=== PATIENT | female | born 1995 | race Caucasian/White ===

== ENCOUNTER → 2018-05-03 17:01 | Outpatient (CLI) | payer OTHER, SELFPAY ==
[2018-05-06 17:11] LABS: Neisseria gonorrhoeae, NAA Negative (Negative)
== END ==
LOC: LAB 05-04 12:02 → LAB.DROPOF 05-05 12:20
PROVIDERS: Visit Provider Nurse Practitioner Obstetrics & Gynecology
DX: R10.2 Pelvic and perineal pain (principal)
CPT/HCPCS: 87491; 87591

== ENCOUNTER 2020-12-16 17:14 | Emergency (ER) | payer OTHER, SELFPAY ==
[2020-12-16 19:05] VITALS: BP 112/87; PULSE 74; RESP 20; TEMP 37.1; O2SAT 100; BMI 35.7
--- NOTE | 2020-12-16 19:22 | HMH.EDUTC ---
[facility] [place] [facility] [place] Clinical Impression: Viral syndrome Disposition: Home, Self-Care Condition on Discharge: Good Instructions: Sore Throat, DI for Viral Syndrome, DI for COVID-19 (Suspected or Confirmed ), Preventing the Spread of Coronavirus Discharge Instructions Additional Instructions: *Monitor Temp, Over the counter Motrin or Tylenol as directed/as needed Tylenol every 4 hours and Motrin every 6 hours (as long as your family doctor has told you that you can take it) for fever or pa-in. and straight to ER if unable to lower temp less than 101.0 after medication given *Warm salt water gargles may help to soothe the throat *Throat Lozenges *Warm fluids like tea with honey may help to soothe the throat *Sleep elevated *Humidifier/Vaporizer *Flonase 2 sprays in each nostril daily but be aware that it may take 2-3 days before you notice improvement Your throat swab was sent for culture. Those results are typically sent to your primary care. Be sure to follow up in 2-3 days with your family doctor/primary care physician if no improvement so they can review those result and treat if necessary. If you don?t have a primary care doctor, I recommend you get one but in the mean time, you will have to return to a walk in clinic Follow up IMMEDIATELY for new or worsening symptoms or no Noticeable improvement over the next 48-72 hours. 911 for difficulty breathing or swallowing You were tested for today for COVID19 your test result should be back in the next 24-48 hours, [facility] to see if your test results are back in the next 48 it may say detected that means your result is positive.You was given handout instructions on how log on and see your results. If you do not have internet access you may call the [facility] for your results [phone] You was given a handout with instructions for Self Quarantine and Self isolation for while you wait on test results and what to do if they are positive If you are positive the Health Dept will be contacting you also Make sure to take your Vitamins Vit. C Vit D and Zinc if you can take them Prescriptions: Fluticasone Propionate [Flonase 50mcg nasal spray 16gm] 1 spr NS DAILY #1 ml Transmission Status: Received by [facility]/pharmacy #[id number] Referrals: Provider,Referral, [Primary Care Provider] - Forms: Work/School Release Medical Decision Making - James Inquiry Pt receiving controlled substance: No James was queried for this patient: No Vital Signs: 12/16/20 19:05 Temperature 98.7 F Temperature Source Oral Pulse Rate [Right Brachial] 74 Respiratory Rate 20 Blood Pressure [Right Arm] 112/87 Blood Pressure Mean [Right Arm] 95 Blood Pressure Source [Right Arm] Automatic Cuff Blood Pressure Position [Right Arm] Sitting 02 Sat by Pulse Oximetry 100 Oxygen Delivery Method Room Air - Lab Data Lab results reviewed: Yes: I reviewed the patient's lab results. Orders (Tests/Meds): ORDERS Category Date Time Status Covid-19 Nasal PCR ([facility]) Routine Lab 12/16/20 19:25 Ordered Covid-19 Nasal PCR ([facility]) Routine Lab 12/16/20 19:28 Received [facility] [place] [facility] [place] HPI - General Stated complaint: congestion ears stopped up Time Seen by Provider: 12/16/20 19:22 Mode of Arrival: Ambulatory Source of Information: Patient Limitations: No Limitations Description of Symptoms (Recalled from Triage Doc. by RN): PATIENT C/O SORE THROAT, BILATERAL EAR PAIN WITH DECREASED HEARING, CONGESTION, RUNNY NOSE AND BACK ACHE SINCE WEDNESDAY HEENT Symptoms (Recalled from RN notes): Yes Resp Symptoms (Recalled from RN notes): No Skin Symptoms (Recalled from RN notes): No MS Symptoms (Recalled from RN notes): Yes Functional Status (Recalled from RN notes): WNL - History of Present Illness Provider Complaint: Patient states that she has been having nasal congestion feels like her left ear is stopped up and unable to hear out of it State that her PCP use to flush it out for her but she dont have one right now, feeling
[2020-12-16 19:56] VITALS: BP 112/87; PULSE 74; RESP 20; TEMP 37.1; O2SAT 100
[2020-12-16 22:04] LABS: UTC Strep Screen (Rapid) Negative (Negative)
== END 2020-12-16 19:58 | disposition home or self-care (01) ==
PROVIDERS: Emergency Provider Nurse Practitioner
DX: B34.9 Viral infection, unspecified (principal); Z20.822 Contact with and (suspected) exposure to COVID-19; F33.1 Major depressive disorder, recurrent, moderate; H61.22 Impacted cerumen, left ear; F17.210 Nicotine dependence, cigarettes, uncomplicated
CPT/HCPCS: 87880; 99203; G0463; U0003

== ENCOUNTER 2021-09-13 19:42 | Emergency (ER) | payer OTHER, SELFPAY ==
[2021-09-13 20:40] VITALS: BP 135/78; PULSE 78; RESP 18; TEMP 37.4; O2SAT 100; BMI 35.7
--- NOTE | 2021-09-13 21:06 | HMH.EDUTC ---
[facility] [place] Disposition Clinical Impression: Post-nasal drip Disposition: Home, Self-Care Condition on Discharge: Good Instructions: DI for Allergic Rhinitis Prescriptions: predniSONE [Prednisone 20mg Tab] 20 mg PO BID 5 Days #10 tab Transmission Status: Received by [facility]pharmacy #[id number] Pseudoephedrine HCl [Sudafed 12 Hour 120mg Tab] 120 mg PO Q12 PRN 10 Days #20 tab PRN Reason: congestion/drainage Transmission Status: Received by [facility] #[id number] Referrals: Provider,Referral, [Primary Care Provider] - Forms: Work/School Release Time of Disposition: 21:17 Medical Decision Making - James Inquiry Pt receiving controlled substance: No Vital Signs: 09/13/21 20:40 Temperature 99.3 F Temperature Source Oral Pulse Rate [Right Brachial] 78 Respiratory Rate 18 Blood Pressure [Right Arm] 135/78 Blood Pressure Mean [Right Arm] 97 Blood Pressure Source [Right Arm] Automatic Cuff Blood Pressure Position [Right Arm] Sitting 02 Sat by Pulse Oximetry 100 Oxygen Delivery Method Room Air [facility] [place] HPI - General Stated complaint: cough,runny nose, sore throat Time Seen by Provider: 09/13/21 21:06 Mode of Arrival: Ambulatory Source of Information: Patient Limitations: No Limitations Description of Symptoms (Recalled from Triage Doc. by RN): PATIENT C/O RUNNY NOSE, CONGESTION, AND COUGH X 3 DAYS HEENT Symptoms (Recalled from RN notes): Yes Resp Symptoms (Recalled from RN notes): Yes Skin Symptoms (Recalled from RN notes): No MS Symptoms (Recalled from RN notes): No Functional Status (Recalled from RN notes): WNL - History of Present Illness Provider Complaint: Runny nose, cough, congestion X 3 days. No fever. Denies ear pain. Sore throat from coughing. Cough is non productive. Taking loratadine. Doesn't seem to be helping as much as it usually does. Onset (ago): day(s) (3) Relieving factors: none Exacerbating factors: none Associated symptoms: cough Treatments prior to arrival: other (loratadine) - Related Data Home Medications Medication Instructions Recorded Confirmed dextroamphetamine-amphetamine 5 mg 5 mg PO tab 06/11/21 06/11/21 tablet sertraline 100 mg tablet 100 mg PO tab 06/11/21 06/11/21 Previous Rx's Medication Instructions Recorded Pseudoephedrine HCl [Sudafed 12 120 mg PO Q12 PRN 10 Days #20 tab 09/13/21 Hour 120mg Tab] predniSONE [Prednisone 20mg 20 mg PO BID 5 Days #10 tab 09/13/21 Tab] Allergies Allergy/AdvReac Type Severity Reaction Status Date / Time No Known Allergies Allergy Verified 06/11/21 09:56 - Worker's Comp Is this a Worker's Comp case?: No [facility] History - Hepatitis A Screen Attestation statement:: This patient has been screened for Hepatitis A risk factors. I have reviewed the patient's past medical history: Yes Medical History: Reports:: Depression Denies:: Cancer, Diabetes Mellitus Type 1, Diabetes Mellitus Type 2, Hypertension, MRSA Comment: ADD Laterality Cases: Bilateral: Tonsillectomy Other Surgeries: Yes: No Previous Surgery Amputation: No Fractures: No Comment: [place] Teeth - Social History Smoking Status: Former smoker Tobacco Type: cigarettes # Packs/Day (cigarettes): 1 Alcohol Intake: never Alcohol Intake Frequency:: other Substance Use Type: marijuana Occupational Status: employed - Psychiatric History Pschychiatric History:: Reports:: Depression Family Hx:: Diabetes ROS Obtained: Yes All systems reviewed & no additional complaints - Constitutional Constitutional: Denies fever(s) - ENT Ears, Nose, Mouth, and Throat: Reports nasal congestion, Reports nasal discharge, Reports sore throat - Respiratory Respiratory: Reports cough Physical Exam - General General appearance: alert, in no apparent distress - Head Head exam: atraumatic, normocephalic - Eye Eye exam: Present: PERRL - ENT ENT exam: Present: TM's normal bilaterally - Expanded ENT Exam Throat exam: Present: other (thick PND)
[2021-09-13 21:18] VITALS: BP 135/78; PULSE 78; RESP 18; TEMP 37.4; O2SAT 100
== END 2021-09-13 21:28 | disposition home or self-care (01) ==
PROVIDERS: Emergency Provider Physician Assistant
DX: J02.9 Acute pharyngitis, unspecified (principal); R09.82 Postnasal drip; F33.1 Major depressive disorder, recurrent, moderate; Z72.0 Tobacco use
CPT/HCPCS: 96372; 99212; G0463; J1040

== ENCOUNTER 2023-05-21 08:04 | Emergency (ER) | payer OTHER, SELFPAY ==
[2023-05-21 08:05] VITALS: BP 128/87; PULSE 90; RESP 15; TEMP 37; O2SAT 100; BMI 25.0
--- NOTE | 2023-05-21 08:12 | XR_ITS ---
FINAL REPORT CLINICAL HISTORY: neck pain s/p chiro adjustment, L shoulder pain FINDINGS: LEFT SHOULDER 3 views of the left shoulder were obtained. There is no acute fracture or dislocation. Visualized joint spaces are normally aligned. Soft tissues are unremarkable. IMPRESSION: No acute bony abnormality. Reviewed, Interpreted and Dictated by Hugo Velarde MD Transcribed by Jazlyn Ledezma Authenticated and [facility]
--- NOTE | 2023-05-21 08:12 | CT_ITS ---
FINAL REPORT TECHNIQUE: Thin section axial CT with sagittal and coronal reconstructions. This study was performed with techniques to keep radiation doses as low as reasonably achievable (ALARA). Individualized dose reduction techniques using automated exposure control or adjustment of mA and/or kV according to the patient's size were employed. CLINICAL HISTORY: neck pain s/p chiro adjustment, L shoulder pain FINDINGS: CT THORACIC SPINE No fracture is present. Alignment is normal. No bony canal stenosis is seen. No significant disc abnormalities. IMPRESSION: Negative CT evaluation of the thoracic spine for acute bony injury. Reviewed, Interpreted and Dictated by Hugo Velarde MD Transcribed by Rain Cyr Authenticated and [facility]
--- NOTE | 2023-05-21 08:12 | CT_ITS ---
FINAL REPORT TECHNIQUE: Thin section axial CT with sagittal reconstruction without contrast. This study was performed with techniques to keep radiation doses as low as reasonably achievable (ALARA). Individualized dose reduction techniques using automated exposure control or adjustment of mA and/or kV according to the patient's size were employed. CLINICAL HISTORY: neck pain s/p chiro adjustment, L shoulder pain FINDINGS: No fracture is seen. Alignment is normal. No obvious bony spinal canal stenosis is present. No gross disk abnormalities are seen. IMPRESSION: No fracture or malalignment. Reviewed, Interpreted and Dictated by Hugo Velarde MD Transcribed by Rain Cyr Authenticated and [facility]
--- NOTE | 2023-05-21 08:16 | HMH.EDGENADL ---
Discharge Plan Disposition Patient Disposition: Home, Self-Care Condition: Good Prescriptions Prescriptions: New lidocaine [Lidoderm] 5 % adhesive patch,medicated 1 patch topical DAILY Qty: 15 0RF Rx Instructions: leave on most painful area for up to 12 hrs naproxen 500 mg tablet 500 mg PO BID PRN (Reason: pain) Qty: 20 0RF methocarbamol 750 mg tablet 750 mg PO Q8H PRN (Reason: pain) Qty: 20 0RF No Action dextroamphetamine-amphetamine [Adderall XR] 20 mg capsule,extended release 24hr 20 mg PO DAILY escitalopram oxalate 5 mg tablet 5 mg PO DAILY Referrals Follow up/Referrals: Provider,Referral, [Primary Care Provider] - See instructions Activity Restrictions/Add. Instructions Additional Instructions/Restrictions: You were evaluated in the emergency department today. Please picker and sorter load and unload your prescriptions and take them as needed for pain. You may also take Tylenol. Follow-up with your primary care provider over the next week. Return to the emergency department for new or worsening symptoms. Clinical Impressions Clinical Impression: Neck and shoulder pain Stand Alone Forms Stand Alone Forms: Work/School Release Instructions Patient Instructions: DI for Acute Pain -- Adult, DI for Neck Pain Discharge ED Provider: Kirstin Ellison General Adult HPI General Chief complaint: PAIN Stated complaint: left neck and shoulder pain Time Seen by Provider: 05/21/23 08:10 Mode of Arrival: Ambulatory Source of Information: Patient Limitations: No Limitations Description of Symptoms (Recalled from ER Triage Doc. by RN): pt presents to ED with c/o left shoulder pain. pt reports she went to the chiropractor yesterday for adjustment. this am pt woke up with increased pain. pt reports pain at baseline, and has been seeing a chiropractor for many years. History of Present Illness HPI narrative: This patient is a 28-year-old female who denies significant past medical history presenting to the emergency department for evaluation with concern for neck and left shoulder pain. Patient reports that she chronically has neck and left shoulder pain, for which she sees a chiropractor. She has seen a chiropractor for a long time but is at a new chiropractor the last few visits. She notes that she was adjusted yesterday and since has had severe neck pain as well as left shoulder pain. She states that it feels like a throbbing pain. No numbness, tingling, vision changes, muscle weakness, or balance issues, gait disturbance, or other concerns. She has otherwise been well. She denies any concern she could be . Related Data Home Medications Medication Instructions Recorded Confirmed dextroamphetamine-amphetamine ER 20 mg PO DAILY 04/28/23 05/21/23 20 mg 24hr capsule,extend release (Adderall XR) escitalopram oxalate 5 mg tablet 5 mg PO DAILY 04/28/23 05/21/23 Previous Rx's Medication Instructions Recorded lidocaine 5 % topical patch 1 patch topical DAILY #15 ea 05/21/23 (Lidoderm) methocarbamol 750 mg tablet 750 mg PO Q8H PRN pain #20 tabs 05/21/23 naproxen 500 mg tablet 500 mg PO BID PRN pain #20 tabs 05/21/23 Allergies Allergy/AdvReac Type Severity Reaction Status Date / Time No Known Allergies Allergy Verified 04/28/23 14:03 [facility] Disclaimer: The information contained in this section may have been updated after the patient was seen, as this information can be updated by other users. Medical History ADHD Anxiety and depression Surgical History Hx of tonsillectomy Family History Other Diabetes Social History Smoking Status: Current every day smoker tobacco type: cigarettes packs per day: 1 alcohol intake: never substance use type: marijuana current occupational status: employed Travel in the last 8 weeks: None ROS Obtained: Yes All systems reviewed & no additional complaints except as documented Physical Exam General General appearance: alert and in no apparent distress Head Head exam: atraumatic and normocephalic Eye Eye exam: Present normal appearance, PERRL and EOMI ENT ENT exam: Present normal exam, normal oropharynx, mucous membranes moist and normal external ear exam Neck Neck exam: Present trachea midline and tenderness (Left neck); Absent full ROM (Limited range of motion secondary to pain), meningismus or lymphadenopathy Chest Chest inspection: Present normal inspection and symmetric chest wall rise; Absent tenderness Respiratory Respiratory exam: Present normal lung sounds bilaterally; Absent respiratory distress, wheezes, stridor or accessory muscle use Cardiovascular Cardiovascular exam: Present regular rate and normal rhythm Abdominal Exam Abdominal exam: Present soft; Absent distention, tenderness or guarding Extremities Exam Extremities exam: Present full ROM, tenderness (Tenderness palpation of the left posterior shoulder about the scapula. Neurovascularly intact distally.) and normal capillary refill; Absent edema Back Exam Back exam: Present full ROM and tenderness (Left neck paraspinal muscles and left upper thoracic paraspinal muscles) Neurological Exam Neurological exam: Present alert, oriented X3, CN II-XII intact and normal gait; Absent motor sensory deficit Psychiatric Psychiatric exam: Present normal affect and normal mood Skin Skin exam: Present warm and dry Medical Decision Making Medical Records Medical records reviewed: Yes I reviewed the patient's medical records. James Inquiry Pt receiving controlled substance: No Vital Signs: 05/21/23 08:05 05/21/23 09:00 05/21/23 09:30 Temperature 98.6 F Temperature Source Oral Pulse Rate 75 75 Pulse Rate [Left Radial] 90 Respiratory Rate 15 Blood Pressure 108/56 L 122/70 Blood Pressure [Right Arm] 128/87 Blood Pressure Mean 73 85 Blood Pressure Mean [Right Arm] 100 02 Sat by Pulse Oximetry 100 98 98 Oxygen Delivery Method Room Air Room Air Room Air 05/21/23 10:15 Temperature 98.0 F Temperature Source Pulse Rate 96 H Pulse Rate [Left Radial] Respiratory Rate 19 Blood Pressure 113/68 Blood Pressure [Right Arm] Blood Pressure Mean Blood Pressure Mean [Right Arm] 02 Sat by Pulse Oximetry Oxygen Delivery Method Room Air Lab Data Lab results reviewed: Yes I reviewed the patient's lab results. Lab Results 05/21/23 08:20: Urine HCG, Qual Negative Orders (Tests/Meds): ED MEDICATIONS Discontinued Medications Generic Name Dose Route Start Last Admin Trade Name Freq PRN Reason Stop Dose Admin Acetaminophen 1,000 mg 05/21/23 08:12 05/21/23 08:28 Acetaminophen 500mg Tab PO 05/21/23 08:13 1,000 mg ONCE ONE Administration Diazepam 5 mg 05/21/23 08:12 05/21/23 08:29 Diazepam 5mg Tablet PO 05/21/23 08:13 5 mg ONCE ONE Administration Ketorolac Tromethamine 30 mg 05/21/23 08:12 05/21/23 08:29 Ketorolac 30mg/Ml Vial IM 05/21/23 08:13 30 mg ONCE ONE Administration Lidocaine 1 each 05/21/23 08:12 05/21/23 08:29 Lidocaine 5% Transdermal Patch TP 05/21/23 08:13 1 each ONCE ONE Administration ORDERS Category Date Time Status CT cervical spine wo con Stat Cat Scan 05/21/23 08:[address] thoracic spine wo con Stat Cat Scan 05/21/23 08:12 Taken XR shoulder LT min 2V Stat Exams 05/21/23 08:12 Taken Urine , HCG Qual. Stat Lab 05/21/23 08:20 Completed Medical Decision Narrative: In summary, this patient is a 28-year-old female presenting to the Emergency Department for evaluation of neck and left shoulder pain after chiropractic adjustment. Differential diagnoses considered include but are not limited to fracture, musculoskeletal strain/sprain, neurovascular injury. Ruling out the most morbid conditions drove assessment. On exam, the patient is well-appearing with no neurologic symptoms or focal neurologic deficits. She does have paraspinal muscle tenderness, so I feel this is likely musculoskeletal in nature. Workup included CT C-spine, CT T-spine, and x-rays of the left shoulder. She was given oral Valium, IM Toradol, oral Tylenol, a topical Lidoderm patch presented medic improvement. I considered obtaining CT angiograms to evaluate for potential vascular injury, however the patient is completely neurologically intact so I do not feel that this is indicated. I independently interpreted CT and x-ray prior to the radiologist read and noted no acute fracture or other traumatic injury. Please see their read for final interpretation. On reassessment, the patient is neurologically intact and resting comfortably with improved symptoms. Given this, feel that she is appropriate for discharge with instructions for musculoskeletal strain/sprain of the neck and left shoulder. She was given instructions for close follow-up with her primary care provider, instructed her to follow-up with orthopedics for her left shoulder pain continue, and I gave her strict return precautions. She was discharged with prescriptions for Lidoderm patch, Robaxin, and naproxen. Critical Care Critical Care Time Critical Care Time: No
[2023-05-21] MEDS: ACETAMINOPHEN 500MG TAB 1000 MG PO (08:28)
[2023-05-21] MEDS: KETOROLAC 30MG/ML VIAL 30 MG IM (08:29)
[2023-05-21] MEDS: LIDOCAINE 5% TRANSDERMAL PATCH 1 EACH TP (08:29)
[2023-05-21] MEDS: diazePAM 5MG TABLET 5 MG PO (08:29)
[2023-05-21 08:47] LABS: Urine Pregnancy, HCG Qual. Negative (Negative)
[2023-05-21 09:00] VITALS: BP 108/56; PULSE 75; O2SAT 98
--- NOTE | 2023-05-21 09:02 | PC.NURSE ---
RADIOLOGY NOTIFIED OF NEGATIVE TEST, PT IS READY FOR CT AND XR
--- NOTE | 2023-05-21 09:06 | PC.NURSE ---
Pt gone to RAD via wheelchair
--- NOTE | 2023-05-21 09:07 | PC.NURSE ---
PT TO CT AND XR
--- NOTE | 2023-05-21 09:19 | PC.NURSE ---
Pt returned from RAD
[2023-05-21 09:30] VITALS: BP 122/70; PULSE 75; O2SAT 98
[2023-05-21 10:15] VITALS: BP 113/68; PULSE 96; RESP 19; TEMP 36.7; O2SAT 98
== END 2023-05-21 10:20 | disposition home or self-care (01) ==
PROVIDERS: Emergency Provider Emergency Medicine
DX: M54.2 Cervicalgia (principal); M25.512 Pain in left shoulder; F17.210 Nicotine dependence, cigarettes, uncomplicated
CPT/HCPCS: 72125; 72128; 73030; 81025; 96372; 99285

== ENCOUNTER 2023-06-01 14:32 | Outpatient (CLI) | payer OTHER, SELFPAY ==
--- NOTE | 2023-06-01 14:37 | US_ITS ---
PROCEDURE: US TRANSVAGINAL CLINICAL INDICATION: iud in place COMPARISON: No exams were available for comparison FINDINGS: Transvaginal sonographic images of the pelvis were obtained. UTERUS: 6.8 cm x 4.8 cmx 4.0cm retroverted, retroflexed with a combined endometrial thickness of 7.5mm. There is an IUD in the correct position within the uterine cavity. LEFT OVARY: 4.2cmx2.6 cm. There is a dominant follicle measuring 2.0 cm x 1.2 cm x 1.3 cm. RIGHT OVARY: 4.1cmx 3.0cmx2.4cm with a volume of 15.8ml. Follicle measures 1.8 cm x 2.0 cm x 1.6 cm. Follicle 2 measures 2.1 cm x 2.3 cm x 1.6 cm. Both ovaries are seen and appear normal. Doppler flow to both ovaries are seen. There is minimal fluid in the cul-de-sac. It measures 4.7 cm x 2.1 cm. IMPRESSION: 1. Retroverted, retroflexed uterus normal in shape and size. The endometrium is normal thickness. 2. An IUD is present within the uterine cavity in the correct position. 3. Both left and right ovaries are seen and appear normal. There are follicles on both ovaries. 4. There is minimal fluid in the cul-de-sac. Dictated by: Lenin Ross MD 06/01/2023 16:11 Lenin Ross MD in OV 06/01/2023 16:11
== END 2023-06-01 23:59 ==
LOC: RAD 14:34
PROVIDERS: PCP Nurse Practitioner Obstetrics & Gynecology; Visit Provider Nurse Practitioner Obstetrics & Gynecology
DX: Z97.5 Presence of (intrauterine) contraceptive device (principal)
CPT/HCPCS: 76830

== ENCOUNTER 2023-09-11 14:27 | Emergency (ER) | payer OTHER, SELFPAY ==
[2023-09-11 15:30] VITALS: BP 108/87; PULSE 67; RESP 20; TEMP 36.5; O2SAT 100; BMI 24.4
[2023-09-11 16:05] LABS: UTC Strep Screen (Rapid) Positive (Negative)
--- NOTE | 2023-09-11 16:19 | EXP.UTC ---
Discharge Plan Disposition Patient Disposition: Home, Self-Care Condition: Good Prescriptions Prescriptions: New benzonatate 100 mg capsule 100 mg PO TID PRN (Reason: cough) Qty: 30 0RF cefdinir 300 mg capsule 300 mg PO Q12H 10 Days Qty: 20 0RF No Action dextroamphetamine-amphetamine [Adderall XR] 20 mg capsule,extended release 24hr 20 mg PO DAILY escitalopram oxalate 5 mg tablet 5 mg PO DAILY Kyleena 17.5 mcg/24 hrs (5 yrs) 19.5 mg intrauterine device 1 device intrauterine ONCE lidocaine [Lidoderm] 5 % adhesive patch,medicated 1 patch topical DAILY Qty: 15 0RF Rx Instructions: leave on most painful area for up to 12 hrs dextroamphetamine-amphetamine 5 mg tablet 5 mg PO DAILY Patient Comments: TAKE 1 TABLET BY MOUTH ONCE DAILY Referrals Follow up/Referrals: Tom Nix [Primary Care Provider] - See instructions Activity Restrictions/Add. Instructions Additional Instructions/Restrictions: If symptoms persist or worsen, return to the clinic. Clinical Impressions Clinical Impression: Strep pharyngitis URI (upper respiratory infection) Qualifiers: URI type: unspecified URI Qualified Code(s): J06.9 - Acute upper respiratory infection, unspecified Instructions Patient Instructions: DI for Strep Throat, DI for Viral Upper Respiratory Infection -- Adult Discharge ED Provider: Bambi Medina [facility] General Stated complaint: cough, sore throat, congestion Mode of Arrival: Ambulatory Source of Information: Patient Limitations: No Limitations Time Seen by Provider: 09/11/23 16:18 Description of Symptoms (Recalled from Triage Doc. by RN): Pt's symptoms are cough, sore throat, productive cough, and HASTINGS. HEENT Symptoms (Recalled from RN notes): Yes Resp Symptoms (Recalled from RN notes): No Skin Symptoms (Recalled from RN notes): No MS Symptoms (Recalled from RN notes): No Functional Status (Recalled from RN notes): n/a History of Present Illness Provider Complaint: Pt states that she has had a strong cough, headache, and sore throat since last night. 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 She denies taking anything for her symptoms. Related Data Home Medications Medication Instructions Recorded Confirmed dextroamphetamine-amphetamine ER 20 mg PO DAILY 04/28/23 09/11/23 20 mg 24hr capsule,extend release (Adderall XR) escitalopram oxalate 5 mg tablet 5 mg PO DAILY 04/28/23 09/11/23 levonorgestrel 17.5 mcg/24 hr (up 1 device intrauterine ONCE 05/26/23 09/11/23 to 5 yrs) 19.5mg intrauterine device (Kyleena) dextroamphetamine-amphetamine 5 mg 5 mg PO DAILY 09/11/23 09/11/23 tablet Previous Rx's Medication Instructions Recorded lidocaine 5 % topical patch 1 patch topical DAILY #15 ea 05/21/23 (Lidoderm) benzonatate 100 mg capsule 100 mg PO TID PRN cough #30 caps 09/11/23 cefdinir 300 mg capsule 300 mg PO Q12H 10 days #20 caps 09/11/23 Allergies Allergy/AdvReac Type Severity Reaction Status Date / Time No Known Allergies Allergy Verified 09/11/23 16:02 Worker's Comp Is this a Worker's Comp case?: No [facility] Disclaimer: The information contained in this section may have been updated after the patient was seen, as this information can be updated by other users. Medical History ADHD Anxiety and depression Surgical History Hx of tonsillectomy Family History Other Diabetes Social History Smoking Status: Current every day smoker tobacco type: cigarettes packs per day: 1 alcohol intake: never substance use type: marijuana current occupational status: employed Travel in the last 8 weeks: None ROS Obtained: Yes All systems reviewed & no additional complaints except as documented Constitutional Constitutional: Reports system reviewed and no additional complaints, except as documented and Reports malaise Eyes Eyes: Reports system reviewed and no additional complaints, except as documented ENT Ears, Nose, Mouth, and Throat: Reports system reviewed and no additional complaints, except as documented, Reports nasal discharge, Reports odynophagia and Reports sore throat Cardiovascular Cardiovascular: Reports system reviewed and no additional complaints, except as documented Respiratory Respiratory: Reports system reviewed and no additional complaints, except as documented and Reports cough Gastrointestinal Gastrointestingal: Reports system reviewed and no additional complaints, except as documented and odynophagia Genitourinary Female Genitourinary: Reports system reviewed and no additional complaints, except as documented Musculoskeletal Musculoskeletal: Reports system reviewed and no additional complaints, except as documented Integumentary/Breasts Skin/Breast: Reports system reviewed and no additional complaints, except as documented Neurologic Neurologic: Reports system reviewed and no additional complaints, except as documented Endocrine Endocrine: Reports system reviewed and no additional complaints, except as documented Hematologic/Lymphatic Henatologic/Lymphatic: Reports system reviewed and no additional complaints, except as documented Allergic/Immunologic Allergic/Immunologic: Reports system reviewed and no additional complaints, except as documented Physical Exam General General appearance: alert Comment: ill appearing Head Head exam: atraumatic and normocephalic Eye Eye exam: Present normal appearance Expanded ENT Exam External ear exam: Present normal external inspection Nasal speculum exam: Bilateral: normal Mouth exam: Present normal external inspection Teeth exam: Present normal inspection Comment: Tonsil absent. Throat is red with soft palate petechia. Neck Neck exam: Present normal inspection Chest Chest inspection: Present normal inspection and symmetric chest wall rise Respiratory Respiratory exam: Present normal lung sounds bilaterally Cardiovascular Cardiovascular exam: Present regular rate and normal rhythm Abdominal Exam Abdominal exam: Present soft Extremities Exam Extremities exam: Present normal inspection Back Exam Back exam: Present normal inspection Neurological Exam Neurological exam: Present alert and oriented X3 Psychiatric Psychiatric exam: Present normal affect and normal mood Skin Skin exam: Present warm, dry and intact Lymphatic Lymphatic Findings: no adenopathy Medical Decision Making James Inquiry Pt receiving controlled substance: No James was queried for this patient: No Vital Signs: 09/11/23 15:30 Temperature 97.7 F Temperature Source Oral Pulse Rate [Right Radial] 67 Respiratory Rate 20 Blood Pressure [Right Arm] 108/87 L Blood Pressure Mean [Right Arm] 94 Blood Pressure Source [Right Arm] Automatic Cuff Blood Pressure Position [Right Arm] Sitting 02 Sat by Pulse Oximetry 100 Oxygen Delivery Method Room Air Lab Data Lab results reviewed: Yes I reviewed the patient's lab results. Lab Results 09/11/23 15:44: Strep Scn Rapid Clinic Positive A
[2023-09-11 16:53] VITALS: BP 108/87; PULSE 67; RESP 20; TEMP 36.5; O2SAT 100
== END 2023-09-11 16:53 | disposition home or self-care (01) ==
PROVIDERS: Emergency Provider Nurse Practitioner Family; PCP Family Medicine
DX: J02.0 Streptococcal pharyngitis (principal); R07.0 Pain in throat; R51.9 Headache, unspecified; R05.9 Cough, unspecified; J06.9 Acute upper respiratory infection, unspecified
CPT/HCPCS: 87880; 99212; 99214; G0463

== ENCOUNTER 2024-01-27 21:00 | Emergency (ER) | payer OTHER, SELFPAY ==
[2024-01-27 21:02] VITALS: BP 103/66; PULSE 80; RESP 16; TEMP 36.9; O2SAT 100; BMI 23.3
--- NOTE | 2024-01-27 21:05 | HMH.EDGENADL ---
Discharge Plan Disposition Patient Disposition: Home, Self-Care Prescriptions Prescriptions: New methocarbamol 750 mg tablet 750 mg PO Q6H PRN (Reason: muscle spasm) Qty: 20 0RF lidocaine 5 % adhesive patch,medicated 1 patch topical DAILY Qty: 30 0RF Rx Instructions: leave on most painful area for up to 12 hrs ondansetron 4 mg tablet,disintegrating 4 mg PO Q6H PRN (Reason: nausea and vomiting) Qty: 10 0RF No Action dextroamphetamine-amphetamine [Adderall XR] 20 mg capsule,extended release 24hr 20 mg PO DAILY escitalopram oxalate 5 mg tablet 5 mg PO DAILY Kyleena 17.5 mcg/24 hrs (5 yrs) 19.5 mg intrauterine device 1 device intrauterine ONCE lidocaine [Lidoderm] 5 % adhesive patch,medicated 1 patch topical DAILY Qty: 15 0RF Rx Instructions: leave on most painful area for up to 12 hrs dextroamphetamine-amphetamine 5 mg tablet 5 mg PO DAILY Patient Comments: TAKE 1 TABLET BY MOUTH ONCE DAILY benzonatate 100 mg capsule 100 mg PO TID PRN (Reason: cough) Qty: 30 0RF cefdinir 300 mg capsule 300 mg PO Q12H 10 Days Qty: 20 0RF Referrals Follow up/Referrals: Ray Cota II, MD [Staff Physician] - See instructions Tom Nix [Primary Care Provider] - See instructions Activity Restrictions/Add. Instructions Additional Instructions/Restrictions: As we discussed keep follow-up with your PCP. Have referred you to Dr. Cota for second opinion regarding your gallbladder. Return to the ER for any worsening signs or symptoms as needed. Clinical Impressions Clinical Impression: Back pain Qualifiers: Back pain location: low back pain Chronicity: chronic Back pain laterality: midline Sciatica presence: without sciatica Qualified Code(s): M54.50 - Low back pain, unspecified Abdominal pain Qualifiers: Abdominal location: epigastric Qualified Code(s): R10.13 - Epigastric pain Nausea & vomiting Qualifiers: Vomiting type: unspecified Qualified Code(s): R11.2 - Nausea with vomiting, unspecified Stand Alone Forms Stand Alone Forms: Work/School Release Instructions Patient Instructions: DI for Acute Abdominal Pain Print Language Print Language: Thai Discharge ED Provider: Oscar Case Adult HPI <PATSY Taylor - Last Filed: 01/27/24 23:20> General Chief complaint: Abdominal Pain Stated complaint: vomiting,pinching and burning in back and stomach Time Seen by Provider: 01/27/24 21:05 History of Present Illness HPI narrative: Patient presents for evaluation of multiple complaints. Patient has a 1 year history of intermittent back and abdominal pain that she feels are intra related. She has had a workup in the past including upper endoscopy abdominal ultrasound and a HIDA scan without any clear-cut cause. Pain is not constant it comes and goes it is not associated with food. Patient thinks that she has nausea and vomiting when the pain becomes severe. She denies any new changes fever chills hemoptysis hematochezia melena. She denies any trauma dysuria. Related Data Home Medications ?Medication ?Instructions ?Recorded ?Confirmed dextroamphetamine-amphetamine ER 20 mg PO DAILY 04/28/23 09/11/23 20 mg 24hr capsule,extend release (Adderall XR) escitalopram oxalate 5 mg tablet 5 mg PO DAILY 04/28/23 09/11/23 levonorgestrel 17.5 mcg/24 hr (up 1 device intrauterine ONCE 05/26/23 09/11/23 to 5 yrs) 19.5mg intrauterine device (Kyleena) dextroamphetamine-amphetamine 5 mg 5 mg PO DAILY 09/11/23 09/11/23 tablet Previous Rx's ?Medication ?Instructions ?Recorded lidocaine 5 % topical patch 1 patch topical DAILY #15 ea 05/21/23 (Lidoderm) benzonatate 100 mg capsule 100 mg PO TID PRN cough #30 caps 09/11/23 cefdinir 300 mg capsule 300 mg PO Q12H 10 days #20 caps 09/11/23 lidocaine 5 % topical patch 1 patch topical DAILY #30 ea 01/27/24 methocarbamol 750 mg tablet 750 mg PO Q6H PRN muscle spasm #20 01/27/24 tabs ondansetron 4 mg disintegrating 4 mg PO Q6H PRN nausea and 01/27/24 tablet vomiting #10 tabs Allergies Allergy/AdvReac Type Severity Reaction Status Date / Time No Known Allergies Allergy Verified 09/11/23 16:02 [facility] <PATSY Taylor - Last Filed: 01/27/24 23:20> [facility] Disclaimer: The information contained in this section may have been updated after the patient was seen, as this information can be updated by other users. Medical History ADHD Anxiety and depression Surgical History Hx of tonsillectomy Family History Other Diabetes Social History Smoking Status: Never smoker alcohol intake: never substance use type: marijuana current occupational status: employed Travel in the last 8 weeks: None Other Medical History Have you received the Flu Vaccine for this season: No Have you received the Pneumonia Vaccine: No <PATSY Taylor - Last Filed: 01/27/24 23:20> ROS Obtained: Yes Systems reviewed as appropriate & no additional complaints except as documented Physical Exam <PATSY Taylor - Last Filed: 01/27/24 23:20> General General appearance: alert and in no apparent distress Respiratory Respiratory exam: Present normal lung sounds bilaterally Cardiovascular Cardiovascular exam: Present regular rate Neurological Exam Neurological exam: Present alert and oriented X3 Medical Decision Making <PATSY Taylor - Last Filed: 01/27/24 23:20> Medical Records Medical records reviewed: Yes I reviewed the patient's medical records. Screening: Per USPSTF and CDC recommendations, given the prevalence of disease in our region, it is our hospital?s policy to screen for HIV and viral Hepatitis for all patients aged 18 and over and those with ongoing risk factors. James Inquiry Pt receiving controlled substance: No Vital Signs: 01/27/24 21:02 01/27/24 23:21 Temperature 98.4 F 98.9 F Temperature Source Oral Oral Pulse Rate 74 Pulse Rate [Left Radial] 80 Respiratory Rate 16 16 Blood Pressure 98/56 L Blood Pressure [Right Arm] 103/66 L Blood Pressure Mean [Right Arm] 78 Blood Pressure Source [Right Arm] Automatic Cuff Blood Pressure Position [Right Arm] Sitting 02 Sat by Pulse Oximetry 100 Oxygen Delivery Method Room Air Room Air Lab Data Lab results reviewed: Yes I reviewed the patient's lab results. Lab Results 01/27/24 21:26: WBC 7.7, RBC 3.93 L, Hgb 12.6, Hct 37.4, MCV 95.2, MCH 32.1 H, MCHC 33.7, RDW 12.8, Plt Count 233, MPV 10.3, Neut % (Auto) 42.4, Lymph % (Auto) 39.1, [place] % (Auto) 10.6 H, Eos % (Auto) 6.1, Baso % (Auto) 1.9, Neut # (Auto) 3.3, Lymph # (Auto) 3.0, [place] # (Auto) 0.8, Eos # (Auto) 0.5 H, Baso # (Auto) 0.1, Sodium 135 L, Potassium 4.3, Chloride 109 H, Carbon Dioxide 24, Anion Gap 6.3, BUN 17, Creatinine 0.80, Estimated Creat Clear 105, Estimated GFR 85, Est GFR ( Amer) 103, Glucose 86, Calcium 9.1, Magnesium 1.8, Total Bilirubin 0.8, AST 31, ALT 26, Alkaline Phosphatase 45, Total Protein 7.7, Albumin 4.5, Globulin 3.2, Albumin/Globulin Ratio 1.4, Lipase 172, Serum HCG, Qual Negative, HIV 1&2 Antibody Rapid Nonreactive 01/27/24 21:32: Urine Color Yellow, Urine Appearance Clear, Urine pH 6.0, Ur Specific [place] >= 1.030, Urine Protein Negative, Urine Glucose (UA) Negative, Urine Ketones Trace, Urine Blood Trace-i, Urine Nitrate Negative, Urine Bilirubin Negative, Urine Urobilinogen 1.0, Ur Leukocyte Esterase Negative, Urine RBC 3-5, Urine WBC 3-5, Ur Squamous Epith Cells 10-20, Urine Bacteria 1+, Urine Mucus 1+ 01/27/24 22:39: Lactate 0.7 01/27/24 21:26 01/27/24 21:26 Orders (Tests/Meds): ED MEDICATIONS Discontinued Medications Generic Name Dose Route Start Last Admin Trade Name Freq PRN Reason Stop Dose Admin Dexamethasone Sodium Phosphate 10 mg 01/27/24 21:17 01/27/24 21:46 Dexamethasone 4mg/Ml 5ml Mdv IV 01/27/24 21:18 10 mg ONCE ONE Administration Ketorolac Tromethamine 15 mg 01/27/24 21:17 01/27/24 21:46 Ketorolac 30mg/Ml Vial IV 01/27/24 21:18 15 mg ONCE ONE Administration Lidocaine 1 each 01/27/24 21:17 01/27/24 21:46 Lidocaine 5% Transdermal Patch TP 01/27/24 21:18 1 each ONCE ONE Administration Methocarbamol 500 mg 01/27/24 21:17 01/27/24 21:46 Methocarbamol 500mg Tablet PO 01/27/24 21:18 500 mg ONCE ONE Administration Ondansetron HCl 4 mg 01/27/24 21:05 01/27/24 21:46 Ondansetron 4mg/2ml Vial IV 01/27/24 21:06 4 mg ONCE ONE Administration ORDERS Category Date Time Status CBC w/Auto Diff [Complete Blood Count Auto Diff] Stat Lab 01/27/24 21:26 Completed CMP [Comprehensive Metabolic Panel] Stat Lab 01/27/24 21:26 Completed HCG Qualitative, Serum Stat Lab 01/27/24 21:26 Completed HIV (1&2) Antibody Rapid Stat Lab 01/27/24 21:26 Completed Hep C Ab with Reflex to RNA Stat Lab 01/27/24 21:26 Received Lactic Acid Stat Lab 01/27/24 22:39 Completed Lipase Stat Lab 01/27/24 21:26 Completed Magnesium Stat Lab 01/27/24 21:26 Completed UA [Urinalysis and Microscopic] Stat Lab 01/27/24 21:32 Completed Medical Decision Narrative: In summary patient is a 29-year-old female who presents to the emergency department for evaluation of epigastric abdominal and low back pain. Patient is hemodynamically stable upon arrival, afebrile. Physical exam is remarkable for mild epigastric tenderness but not focal to any specific area without rebound or guarding or rigidity. Patient has negative bilateral CVA tenderness to percussion. Patient does however have mild paraspinous muscular tenderness around the lumbar spine without any bony deformity noted. Patient has no radicular or neuropathic pain she is neurovascular intact distally in the bilateral lower extremities without saddle anesthesia or bowel or bladder incontinence. Differential diagnosis includes gastroenteritis versus ulcer disease versus esophagitis versus biliary dyskinesia versus degenerative disc disease pancreatitis etc. Initial workup will be conducted with hematologic labs urinalysis. Initial interventions include acetaminophen Toradol Robaxin Lidoderm patch. Initial workup reviewed by me is reassuring as her hematologic labs are nonactionable lipase is normal transaminases are slowly normal bilirubin is normal urinalysis contaminated. Upon repeat evaluation patient actually had significant reduction in her discomfort with initial intervention. Given this patient is appropriate for discharge with prescriptions for Robaxin and Lidoderm and Zofran, a referral to gastroenterology for second opinion regarding her gallbladder and strict return precautions. <Oscar Case MD - Last Filed: 01/28/24 00:38> Vital Signs: 01/27/24 21:02 01/27/24 23:21 Temperature 98.4 F 98.9 F Temperature Source Oral Oral Pulse Rate 74 Pulse Rate [Left Radial] 80 Respiratory Rate 16 16 Blood Pressure 98/56 L Blood Pressure [Right Arm] 103/66 L Blood Pressure Mean [Right Arm] 78 Blood Pressure Source [Right Arm] Automatic Cuff Blood Pressure Position [Right Arm] Sitting 02 Sat by Pulse Oximetry 100 Oxygen Delivery Method Room Air Room Air Lab Data Lab Results 01/27/24 21:26: WBC 7.7, RBC 3.93 L, Hgb 12.6, Hct 37.4, MCV 95.2, MCH 32.1 H, MCHC 33.7, RDW 12.8, Plt Count 233, MPV 10.3, Neut % (Auto) 42.4, Lymph % (Auto) 39.1, [place] % (Auto) 10.6 H, Eos % (Auto) 6.1, Baso % (Auto) 1.9, Neut # (Auto) 3.3, Lymph # (Auto) 3.0, [place] # (Auto) 0.8, Eos # (Auto) 0.5 H, Baso # (Auto) 0.1, Sodium 135 L, Potassium 4.3, Chloride 109 H, Carbon Dioxide 24, Anion Gap 6.3, BUN 17, Creatinine 0.80, Estimated Creat Clear 105, Estimated GFR 85, Est GFR ( Amer) 103, Glucose 86, Calcium 9.1, Magnesium 1.8, Total Bilirubin 0.8, AST 31, ALT 26, Alkaline Phosphatase 45, Total Protein 7.7, Albumin 4.5, Globulin 3.2, Albumin/Globulin Ratio 1.4, Lipase 172, Serum HCG, Qual Negative, HIV 1&2 Antibody Rapid Nonreactive 01/27/24 21:32: Urine Color Yellow, Urine Appearance Clear, Urine pH 6.0, Ur Specific [place] >= 1.030, Urine Protein Negative, Urine Glucose (UA) Negative, Urine Ketones Trace, Urine Blood Trace-i, Urine Nitrate Negative, Urine Bilirubin Negative, Urine Urobilinogen 1.0, Ur Leukocyte Esterase Negative, Urine RBC 3-5, Urine WBC 3-5, Ur Squamous Epith Cells 10-20, Urine Bacteria 1+, Urine Mucus 1+ 01/27/24 22:39: Lactate 0.7 Orders (Tests/Meds): ED MEDICATIONS Discontinued Medications Generic Name Dose Route Start Last Admin Trade Name Freq PRN Reason Stop Dose Admin Dexamethasone Sodium Phosphate 10 mg 01/27/24 21:17 01/27/24 21:46 Dexamethasone 4mg/Ml 5ml Mdv IV 01/27/24 21:18 10 mg ONCE ONE Administration Ketorolac Tromethamine 15 mg 01/27/24 21:17 01/27/24 21:46 Ketorolac 30mg/Ml Vial IV 01/27/24 21:18 15 mg ONCE ONE Administration Lidocaine 1 each 01/27/24 21:17 01/27/24 21:46 Lidocaine 5% Transdermal Patch TP 01/27/24 21:18 1 each ONCE ONE Administration Methocarbamol 500 mg 01/27/24 21:17 01/27/24 21:46 Methocarbamol 500mg Tablet PO 01/27/24 21:18 500 mg ONCE ONE Administration Ondansetron HCl 4 mg 01/27/24 21:05 01/27/24 21:46 Ondansetron 4mg/2ml Vial IV 01/27/24 21:06 4 mg ONCE ONE Administration ORDERS Category Date Time Status CBC w/Auto Diff [Complete Blood Count Auto Diff] Stat Lab 01/27/24 21:26 Completed CMP [Comprehensive Metabolic Panel] Stat Lab 01/27/24 21:26 Completed HCG Qualitative, Serum Stat Lab 01/27/24 21:26 Completed HIV (1&2) Antibody Rapid Stat Lab 01/27/24 21:26 Completed Hep C Ab with Reflex to RNA Stat Lab 01/27/24 21:26 Received Lactic Acid Stat Lab 01/27/24 22:39 Completed Lipase Stat Lab 01/27/24 21:26 Completed Magnesium Stat Lab 01/27/24 21:26 Completed UA [Urinalysis and Microscopic] Stat Lab 01/27/24 21:32 Completed Medical Decision Narrative: In summary patient is a 29-year-old female who presents to the emergency department for evaluation of epigastric abdominal and low back pain. Patient is hemodynamically stable upon arrival, afebrile. Physical exam is remarkable for mild epigastric tenderness but not focal to any specific area without rebound or guarding or rigidity. Patient has negative bilateral CVA tenderness to percussion. Patient does however have mild paraspinous muscular tenderness around the lumbar spine without any bony deformity noted. Patient has no radicular or neuropathic pain she is neurovascular intact distally in the bilateral lower extremities without saddle anesthesia or bowel or bladder incontinence. Differential diagnosis includes gastroenteritis versus ulcer disease versus esophagitis versus biliary dyskinesia versus degenerative disc disease pancreatitis etc. Initial workup will be conducted with hematologic labs urinalysis. Initial interventions include acetaminophen Toradol Robaxin Lidoderm patch. Initial workup reviewed by me is reassuring as her hematologic labs are nonactionable lipase is normal transaminases are slowly normal bilirubin is normal urinalysis contaminated. Upon repeat evaluation patient actually had significant reduction in her discomfort with initial intervention. Given this patient is appropriate for discharge with prescriptions for Robaxin and Lidoderm and Zofran, a referral to gastroenterology for second opinion regarding her gallbladder and strict return precautions. I, Oscar Case MD, was present at the time of patient's arrival to the emergency department and agree with the plan and management as stated above Critical Care <PATSY Taylor - Last Filed: 01/27/24 23:20> Critical Care Time Critical Care Time: No
--- NOTE | 2024-01-27 21:34 | PC.NURSE ---
UA sent at 21:32
--- NOTE | 2024-01-27 21:34 | PC.NURSE ---
pt refused the IV currently steffen house supervisor attempting to talk to patient
[2024-01-27 21:37] LABS: Microscopic, Urine URINE MICROSCOPIC (MICROSCOPIC)
[2024-01-27 21:39] LABS: Appearance,Urine CLEAR (Clear); Blood, Urine TRACE-I (Negative); Color,Urine YELLOW (Yellow); Glucose,Urine (UA) Negative (Negative); Ketones,Urine TRACE (Negative); Leukocyte Esterase,Urine Negative (Negative); Nitrate,Urine Negative (Negative); Protein,Urine Negative (Negative); Specific Gravity, Urine >= 1.030 (1.005-1.030)
[2024-01-27 21:41] LABS: Basophils # 0.1 K/mm3 (0-0.2); Basophils % 1.9 % (0.1-2.0); Eosinophils # 0.5 K/mm3 (0.0-0.4); Eosinophils % 6.1 % (0.1-12.0); Hematocrit 37.4 % (37.0-47.0); Hemoglobin 12.6 g/dL (12.2-16.2); Lymphocytes % 39.1 % (10-50); Mean Corpuscular HGB Conc 33.7 g/dL (31.8-35.4); Mean Corpuscular Hemoglobin 32.1 pg (27.0-31.2); Mean Corpuscular Volume 95.2 fl (81-99); Mean Platelet Volume 10.3 fl (7.4-10.4); Monocytes # 0.8 K/mm3 (0.1-1.0); Monocytes % 10.6 % (1.7-9.3); Neutrophils # 3.3 K/mm3 (1.8-7.8); Neutrophils % 42.4 % (37.0-80.0); Platelet Count 233 K/mm3 (142-424); Red Blood Count 3.93 M/mm3 (4.20-5.40); Red Cell Distribution Width 12.8 % (11.5-17.5); White Blood Count 7.7 K/mm3 (4.8-10.8)
[2024-01-27 21:41] LABS: Bilirubin,Urine Negative (Negative)
[2024-01-27 21:43] LABS: Alanine Aminotransferase 26 U/L (12-78); Albumin Level 4.5 g/dl (3.5-5.0); Albumin/Globulin Ratio 1.4 (1.1-1.8); Alkaline Phosphatase 45 U/L (38-126); Anion Gap 6.3 mEq/L (5-15); Aspartate Amino Transferase 31 U/L (14-36); Bilirubin,Total 0.8 mg/dl (0.2-1.3); Blood Urea Nitrogen 17 mg/dl (7-17); Calcium 9.1 mg/dl (8.4-10.2); Carbon Dioxide 24 mmol/L (22.0-30.0); Chloride 109 mmol/L (98-107); Creatinine Clearance Estimated 105 mL/min (50-200); Estimated Glomerular Filt Rate 85 ml/min (>60); GFR (African American) 103 ML/MIN (>60); Globulin 3.2 g/dL (1.3-3.2); Glucose 86 mg/dl (74-100); Lipase 172 U/L (23-300); Magnesium 1.8 mg/dl (1.6-2.3); Potassium 4.3 mmoL/L (3.5-5.1); Sodium 135 mmol/L (136-145); Total Protein,Serum 7.7 g/dl (6.3-8.2)
[2024-01-27 21:46] LABS: HCG Qualitative, Serum Negative (Negative)
[2024-01-27] MEDS: ONDANSETRON 4MG/2ML VIAL 4 MG IV (21:46)
[2024-01-27] MEDS: METHOCARBAMOL 500MG TABLET 500 MG PO (21:46)
[2024-01-27] MEDS: LIDOCAINE 5% TRANSDERMAL PATCH 1 EACH TP (21:46)
[2024-01-27] MEDS: DEXAMETHASONE 4MG/ML 5ML MDV 10 MG IV (21:46)
[2024-01-27] MEDS: KETOROLAC 30MG/ML VIAL 15 MG IV (21:46)
[2024-01-27 22:01] LABS: Bacteria,Urine 1+ /lpf; Mucus,Urine 1+ /lpf
[2024-01-27 22:57] LABS: Lactic Acid 0.7 mmol/L (0.7-2.1)
[2024-01-27 23:05] LABS: HIV (1&2) Antibody Rapid NONREACTIVE (NONREACTIVE)
[2024-01-27 23:21] VITALS: BP 98/56; PULSE 74; RESP 16; TEMP 37.2; O2SAT 98
[2024-01-29 08:51] LABS: HCV Ab Non Reactive (Non Reactive)
== END 2024-01-27 23:22 | disposition home or self-care (01) ==
PROVIDERS: Physician Assistant; Emergency Provider Student in an Organized Health Care Education/Training Program; PCP Family Medicine
DX: R10.13 Epigastric pain (principal); R11.2 Nausea with vomiting, unspecified; M54.50 Low back pain, unspecified; R10.9 Unspecified abdominal pain; M54.9 Dorsalgia, unspecified
CPT/HCPCS: 80053; 81001; 83605; 83690; 83735; 84703; 85025; 86803; 87389; 96374; 96375; 99283; J1100; J1885; J2405